=== PATIENT | male | born 1990 | race Caucasian/White ===

== ENCOUNTER 2020-06-05 01:05 | Emergency (ER) | payer BC ==
[~2020-06-05] VITALS: Ht 188 cm; Wt 88.0 kg
[2020-06-05 01:07] VITALS: BP 140/112
[2020-06-05] MEDS ORDERED: KETOROLAC 60MG/2ML VIAL IM ONE (01:45)
== END 2020-06-05 04:27 | disposition home or self-care (01) ==
LOC: ER 02:23 → EDBD 02:23 → ER 04:27
DX: M25.511 Pain in right shoulder (principal); W07.XXXA Fall from chair, initial encounter; Y93.84 Activity, sleeping; Y92.89 Other specified places as the place of occurrence of the external cause; R03.0 Elevated blood-pressure reading, without diagnosis of hypertension
CPT/HCPCS: 73030; 99283; J1885